=== PATIENT | female | born 1990 | race Caucasian/White ===

== ENCOUNTER 2016-07-14 19:37 | Emergency (ER) | payer BC ==
[~2016-07-14] VITALS: Ht 167.6 cm; Wt 61.4 kg
[~2016-07-14 19:37] MED LIST: AUGMENTIN PO; BACTROBAN2% TP; DOXYCYCLINE 10100 MG PO; LORTAB 5/500 501 TAB PO; MOTRIN 600600 MG/TAB PO; NO HOME MEDICATIONS; NORCO 325 MG-51 TAB PO; PEPCID 20MG TAB20 MG; PRENATAL1 TA2 PO; PRENATAL1 TA7 PO; ZOFRAN 4MG T4 MG/TAB PO
[2016-07-14 19:46] VITALS: BP 113/73; TEMP 98.4
[2016-07-14] MEDS ORDERED: AMOXICILLIN 50500 MG PO (20:47)
[2016-07-14 20:56] VITALS: PULSE 87
== END 2016-07-14 20:56 | disposition home or self-care (01) ==
LOC: COL.ER 19:37
DX: J02.9 Acute pharyngitis, unspecified (principal); F17.210 Nicotine dependence, cigarettes, uncomplicated

== ENCOUNTER 2017-03-25 00:59 | Inpatient (IN) | payer OTHER ==
[~2017-03-25] VITALS: Ht 170.2 cm; Wt 79.5 kg
[2017-03-25] VITALS (31 sets, daily range): BP systolic 99–140; BP diastolic 54–82; PULSE 61–98; TEMP 97.7–98.1
[~2017-03-25 00:59] MED LIST changes: +AMOXICILLIN 50500 MG PO
[2017-03-25 03:42] LABS: BASO % 0.3 % (0.0-2.0); EOS # 0.1 (0.0-0.7); EOS % 1.2 % (0-4.0); GRAN # 6.6 (1.4-6.5); GRAN % 63.2 % (42.2-75.2); HEMATOCRIT 32.8 % (37.0-47.0); HEMOGLOBIN 10.8 g/dl (12.5-16.0); LYMPH % 28.9 % (20.0-51.0); MEAN CELL VOLUME 83 fl (80.0-100.0); MEAN CORPUSCULAR HEMOGLOBIN 27 pg (27.0-31.0); MEAN CORPUSCULAR HGB CONC 33 g/dl (33.0-37.0); MEAN PLATELET VOLUME 11.6 fl (7.4-10.4); MONO # 0.6 (0.1-0.6); MONO % 6.1 % (1.7-9.3); PLATELET COUNT 283 K/mm3 (130-400); RED BLOOD COUNT 3.95 M/mm3 (4.10-5.30); WHITE BLOOD COUNT 10.4 K/mm3 (4.8-10.8)
[2017-03-25] MEDS ORDERED: PEPCID 20MG TAB20 MG PO (07:21)
[2017-03-25] MEDS ORDERED: PRENATAL PO (07:22)
[2017-03-26 06:33] LABS: HEMATOCRIT 33.8 % (37.0-47.0); HEMOGLOBIN 10.8 g/dl (12.5-16.0)
[2017-03-26 08:00] VITALS: BP 111/64; PULSE 73; TEMP 98
[2017-03-26] MEDS ORDERED: PERCOCET 325 MG1 TA2 PO (08:32)
[2017-03-26] MEDS ORDERED: IBU600 MG PO (08:32)
== END 2017-03-26 14:45 | disposition home or self-care (01) | DRG 775 ==
LOC: LDRO 00:59 → OB 01:37 → LDR 01:37 → OB 20:07
PROVIDERS: Obstetrics & Gynecology
PROC: 10E0XZZ Delivery of Products of Conception, External Approach (ICD-10-PCS; principal; 2017-03-25)
DX: O48.0 Post-term pregnancy (principal); Z3A.40 40 weeks gestation of pregnancy; Z37.0 Single live birth
CPT/HCPCS: J2405; J2590; J2795; J7120

== ENCOUNTER 2017-12-12 17:05 | Emergency (ER) | payer BC ==
[~2017-12-12] VITALS: Ht 170.2 cm; Wt 61.4 kg
[~2017-12-12 17:05] MED LIST changes: +IBU600 MG PO; +PEPCID 20MG TAB20 MG PO; +PERCOCET 325 MG1 TA2 PO; +PRENATAL PO
[2017-12-12 17:09] VITALS: BP 123/75; TEMP 98.3
[2017-12-12] MEDS ORDERED: NORCO 325 MG-51 TAB PO (18:18)
[2017-12-12 18:45] VITALS: PULSE 91
== END 2017-12-12 18:45 | disposition home or self-care (01) ==
LOC: COL.ER 17:05
DX: S62.306A Unspecified fracture of fifth metacarpal bone, right hand, initial encounter for closed fracture (principal); F17.210 Nicotine dependence, cigarettes, uncomplicated; W22.8XXA Striking against or struck by other objects, initial encounter; Y92.009 Unspecified place in unspecified non-institutional (private) residence as the place of occurrence of the external cause
CPT/HCPCS: Q4021

== ENCOUNTER 2018-10-14 11:15 | Emergency (ER) | payer BC, MEDICAID ==
[~2018-10-14] VITALS: Ht 170.2 cm; Wt 65.9 kg
[2018-10-14 11:35] VITALS: BP 130/76; TEMP 97.5
[2018-10-14] MEDS ORDERED: TYLENOL 325MG325 MG PO (18:10)
[2018-10-14 18:30] VITALS: PULSE 109
== END 2018-10-14 18:30 | disposition home or self-care (01) ==
LOC: COL.ER 11:15
DX: S92.501A Displaced unspecified fracture of right lesser toe(s), initial encounter for closed fracture (principal); F17.210 Nicotine dependence, cigarettes, uncomplicated; W22.8XXA Striking against or struck by other objects, initial encounter

== ENCOUNTER 2018-12-06 06:00 | Emergency (ER) | payer BC, MEDICAID ==
[~2018-12-06] VITALS: Ht 170.2 cm; Wt 52.3 kg
[~2018-12-06 06:00] MED LIST changes: +TYLENOL 325MG325 MG PO
[2018-12-06 06:09] VITALS: BP 148/110; TEMP 97.7
--- NOTE | 2018-12-06 06:45 | NUR ---
FHR strip obtained per protocol for G5L4 24.2 week gestation. Patient presents to ER after dropping a tv on her right foot. Denies any OB complaints. Reports normal movement, denies ROM, vaginal bleeding or contractions. Continous audible movement noted during monitoring. Encouraged to follow up as scheduled, labor precautions and kick counts reviewed.
[2018-12-06 07:22] VITALS: PULSE 105
== END 2018-12-06 07:22 | disposition home or self-care (01) ==
LOC: COL.ER 06:00
DX: O9A.213 Injury, poisoning and certain other consequences of external causes complicating pregnancy, third trimester (principal); S90.31XA Contusion of right foot, initial encounter; Z3A.30 30 weeks gestation of pregnancy; W20.8XXA Other cause of strike by thrown, projected or falling object, initial encounter; Y92.009 Unspecified place in unspecified non-institutional (private) residence as the place of occurrence of the external cause

== ENCOUNTER 2019-03-20 08:13 | Inpatient (IN) | payer BC, MEDICAID ==
[2019-03-20] VITALS (25 sets, daily range): BP systolic 117–157; BP diastolic 55–100; PULSE 63–107; TEMP 97.3–98.1
[~2019-03-20] VITALS: Ht 167.6 cm; Wt 79.1 kg
[2019-03-20] MEDS ORDERED: PEPCID AC20 MG PO (08:37)
[2019-03-20 08:51] LABS: BASO % 0.2 % (0.0-2.0); EOS # 0.1 (0.0-0.7); GRAN # 9.6 (1.4-6.5); GRAN % 73.6 % (42.2-75.2); HEMOGLOBIN 10.7 g/dl (12.5-16.0); LYMPH # 2.6 (1.2-3.4); LYMPH % 19.9 % (20.0-51.0); MEAN CELL VOLUME 81 fl (80.0-100.0); MEAN CORPUSCULAR HEMOGLOBIN 26 pg (27.0-31.0); MEAN CORPUSCULAR HGB CONC 33 g/dl (33.0-37.0); MEAN PLATELET VOLUME 11.3 fl (7.4-10.4); MONO # 0.6 (0.1-0.6); MONO % 4.8 % (1.7-9.3); PLATELET COUNT 321 K/mm3 (130-400); RED BLOOD COUNT 4.06 M/mm3 (4.10-5.30); REDCELL DISTRIBUTION WIDTH-CV 13.4 % (11.5-14.5)
[2019-03-20 08:56] LABS: HEMATOCRIT 32.9 % (37.0-47.0)
--- NOTE | 2019-03-20 10:20 | NUR ---
0820 - Pt presents to unit with sister, states she is having contractions, and is visibly uncomfortable. Pt states contractions started around 0500, denies bleeding, leaking of fluid, and reports normal movement. Pt changed into gown, EFM placed, vitals taken, oriented to room and plan of care. SVE by Miles Salvador RN is . Dr. Price notified. IV started with LR infusing, consents signed. Warm blankets proivded, pt in right lateral position. Pt requests epidural, Gilbert Maradiaga, [employer] PERSON notified.
[2019-03-20 10:58] LABS: TRICYCLIC ANTIDEPRESS URINE NEGATIVE
--- NOTE | 2019-03-20 13:50 | NUR ---
1219 - Pt reporting increased pressure, SVE AL/+1. Dr. Price on unit and notified. Anguiano removed, pericare provided. 1229 - Pt reports intense back pain. Repositioned into knee/chest position, then left lateral to promote comfort. T Ashwini notified, see anesthesia record. 1236 - Pt reports urge to push. SVE complete and +2. Dr. Price called to bedside. Nursery RN to bedside. Pt prepped for impending delivery. 1240 - Pt begins involuntarily pushing. 1241 - of viable female infant attended by Dr. Price. to mother's abdomen, care of to Stuart Man RN. Apgars 8/9/9. 1246 - Spontaneous delivery of placenta. Pitocin bolus started at 333ml/hr per protocol. Fundus firm at umbilicus. Vaginal bleeding WNL at this time. Perineum intact. Pt updated on plan of care and safety.
[2019-03-21 00:07] VITALS: BP 137/83; PULSE 94; TEMP 97.9
[2019-03-21 03:00] VITALS: BP 124/70; PULSE 87; TEMP 98
[2019-03-21 09:00] VITALS: BP 131/78; PULSE 100; TEMP 98.3
--- NOTE | 2019-03-21 09:45 | NUR ---
regulatory services consultant to room see patient.
--- NOTE | 2019-03-21 10:34 | NUR ---
Social Work Consult recieved: Substance in Mom and Baby. MILO consulted with Dr. Maxwell about mom and baby. indicate concerns of safety for baby going home with mom. Lab reports show positive screen for methamphetamines, amphetamines, THC-Cannabis. Baby shows same titration. MILO met with nurse about patient. Patient is reported to be sleepy and not very interactive due to her drowsiness. went in room and informed patient about positive tox on baby. Report given that the father of the baby Henrry Vaughan found out about the mothers tox screen prior to of baby and was upset. The father is reported to have removed his wedding ring and leave the facility. Report was given that the father wants to be involved and wants the baby but does not want to be around the patient due to substance use. Father is reported to have made the comment that he does not want to go through this again. Father of the baby is not currently present. SW met with patient in the room. Patient reports that her pcp is Dr. Michel and Dr. Dubon is the following PA. Patient reports that she is to Henrry Vaughan or . Patient reports that she does not have a physical address. Patient reports that she and her and children live in a camper that sleeps 10 at [facility]. Patient reports that she has 5 other children ages 13 Raceless Clement, 11 Bryce Suárez, 5 Scot Hennessy, 4 Cass Clement, 2 Jhatt Clement, and one day Baby Clement (no name yet.) Patient reports that her has two of the children with him and the others are with her sister Ronda Verdugo, Patient reports emergency contacts or family involvement as the following: Mother- Lois Floyd Sister Ronda Verdugo Sister Minoo Suárez 2008 [facility] [address] [facility] [phone] No address given and Britt Clement who is the husbands mother. Patient denies that she has done any drugs other than cannabis 3 weeks ago. Patient reports that she started care at 3-4 weeks but was not drug screened during the course of her visits. Patient reports that this is a shock to her and her spouse. 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 Patient reports that she has supplies for baby and believes that she could care for baby at home. Patient has held baby and acts affectionate towards child. Patient details concerns about baby being taken into custody. placed CPS report #[id number], made contact with [facility] Officer Migue Carbajal responded to the call and notified his supervisor frame sample and pattern and Denice Locke. Awaiting intake for processing and mother to be released from hospital.
--- NOTE | 2019-03-21 14:48 | NUR ---
SEE MOM NOTES NEFTALI HUANG FOR REPORT and INTAKE NUMBER. Denice Intake come out to talk with mom about next steps. They reported that they have a placement setup for baby upon DC if, court is not set prior to DC. Intake reports that the mom stated that no one was taking her baby and she would not leave without her child. SW educated intake on safety protocol.
[2019-03-21 15:30] VITALS: BP 132/75; PULSE 80; TEMP 98.2
--- NOTE | 2019-03-21 17:30 | NUR ---
Patient has taken frequent "walks outside" throughout the afternoon. Patient is at the nurses station at this time and is requesting to be discharged to boarder status. Patient's and sister come to the desk and ask if "she (the patient) is allowed to leave". Boarder status explained to everyone. Patient and at the nurse's station arguing, patient's is upset about the positive UDS and is threatening to call the police. Patient and walk off of the unit together. Security called and updated on situation. Dr. Yousif called and updated, orders for boarder status received.
--- NOTE | 2019-03-21 18:40 | NUR ---
Discharge instructions reviewed with patient. Patient and both in room with baby.
== END 2019-03-21 18:45 | disposition home or self-care (01) | DRG 807 ==
LOC: LDRO 08:13 → LDR 08:15 → LDRO 08:15 → LDR 08:15 → EDSTATUS 09:56 → OB 16:26
PROVIDERS: Student in an Organized Health Care Education/Training Program; ADMIT Obstetrics & Gynecology
PROC: 10E0XZZ Delivery of Products of Conception, External Approach (ICD-10-PCS; principal; 2019-03-20)
PROC: 10907ZC Drainage of Amniotic Fluid, Therapeutic from Products of Conception, Via Natural or Artificial Opening (ICD-10-PCS; 2019-03-20)
DX: O99.324 Drug use complicating childbirth (principal); Z37.0 Single live birth; O77.0 Labor and delivery complicated by meconium in amniotic fluid; F15.90 Other stimulant use, unspecified, uncomplicated; Z3A.39 39 weeks gestation of pregnancy
CPT/HCPCS: J2400; J2590; J7120

== ENCOUNTER 2020-12-04 01:42 | Emergency (ER) | payer BC, MEDICAID ==
[~2020-12-04] VITALS: Ht 167.6 cm; Wt 68.2 kg
[~2020-12-04 01:42] MED LIST changes: +PEPCID AC20 MG PO
[2020-12-04 02:05] VITALS: TEMP 97.9
[2020-12-04 02:57] LABS: BASO # 0.1 (0.0-0.2); BASO % 0.5 % (0.0-2.0); EOS # 0.2 (0.0-0.7); EOS % 2.4 % (0-4.0); GRAN # 5.2 (1.4-6.5); GRAN % 56.9 % (42.2-75.2); HEMATOCRIT 39.6 % (37.0-47.0); HEMOGLOBIN 12.3 g/dl (12.5-16.0); LYMPH # 3.1 (1.2-3.4); MEAN CELL VOLUME 86 fl (80.0-100.0); MEAN CORPUSCULAR HEMOGLOBIN 27 pg (27.0-31.0); MEAN CORPUSCULAR HGB CONC 31 g/dl (33.0-37.0); MONO # 0.6 (0.1-0.6); PLATELET COUNT 297 K/mm3 (130-400); RED BLOOD COUNT 4.63 M/mm3 (4.10-5.30); REDCELL DISTRIBUTION WIDTH-CV 13.6 % (11.5-14.5)
[2020-12-04 03:08] LABS: ALANINE AMINOTRANSFERASE 25 U/L (4-34); ALKALINE PHOSPHATASE 78 U/L (50-136); ANION GAP 7 mmol/L (7-16); AST,SGOT 29 U/L (15-37); BILIRUBIN,TOTAL < 0.1 mg/dL (0.0-1.0); BLOOD UREA NITROGEN 15 mg/dL (7-17); CALCIUM 8.7 mg/dL (8.4-10.2); CARBON DIOXIDE 27 mmol/L (22-30); CHLORIDE 104 mmol/L (98-107); GLUCOSE 87 mg/dL (74-106); POTASSIUM 3.9 mmol/L (3.4-5.0); SODIUM 137 mmol/L (137-145); TOTAL PROTEIN 7.2 gm/dL (6.4-8.2)
[2020-12-04 03:40] LABS: HCG,QUANTITATIVE < 2 mIU/mL (0-5)
[2020-12-04] MEDS ORDERED: NECON 0.5/35 351 TAB PO (04:16)
[2020-12-04 04:20] VITALS: BP 145/87; PULSE 79
== END 2020-12-04 04:20 | disposition home or self-care (01) ==
LOC: COL.ER 01:42
PROVIDERS: Personal Emergency Response Attendant
DX: N93.9 Abnormal uterine and vaginal bleeding, unspecified (principal)

== ENCOUNTER 2021-08-08 12:11 | Emergency (ER) | payer MEDICAID ==
[~2021-08-08] VITALS: Ht 167.6 cm; Wt 68.2 kg
[~2021-08-08 12:11] MED LIST changes: +NECON 0.5/35 351 TAB PO
[2021-08-08 12:29] VITALS: TEMP 98.1
[2021-08-08 12:59] LABS: COLLECTION METHOD CLEAN CATCH
[2021-08-08 13:12] LABS: MUCOUS Present (NOT PRESENT); PH 6 (5-8); SQUAMOUS EPITHELIAL 20-50 /hpf (0-10); URINE APPEARANCE Cloudy (CLEAR/HAZY); URINE BACTERIA None Seen /hpf (NONE SEEN); URINE BILIRUBIN Negative (NEGATIVE); URINE BLOOD 1+ (NEGATIVE); URINE COLOR Yellow (YELLOW); URINE GLUCOSE Negative (NEGATIVE); URINE KETONE Negative (NEGATIVE); URINE LEUKOCYTE ESTERASE Trace (NEGATIVE); URINE NITRATE Negative (NEGATIVE); URINE PROTEIN(semi-quant) 1+ (NEGATIVE); URINE RBC 20-50 /hpf (0-2); URINE UROBILINOGEN >=4.0 (NEGATIVE)
[2021-08-08 13:23] LABS: BASO % 0.2 % (0.0-2.0); EOS # 0.1 K/mm3 (0.0-0.7); EOS % 0.6 % (0.0-4.0); GRAN # 6.7 K/mm3 (1.4-6.5); HEMATOCRIT 43.5 % (37.0-47.0); LYMPH # 1.3 K/mm3 (1.2-3.4); LYMPH % 15.3 % (20.0-51.0); MEAN CELL VOLUME 83 fl (80.0-100.0); MEAN CORPUSCULAR HEMOGLOBIN 27 pg (27-31); MEAN CORPUSCULAR HGB CONC 32 g/dl (33.0-37.0); MONO # 0.5 K/mm3 (0.1-0.6); MONO % 5.7 % (1.7-9.3); PLATELET COUNT 315 K/mm3 (130-400); RED BLOOD COUNT 5.25 M/mm3 (4.10-5.30); REDCELL DISTRIBUTION WIDTH-CV 13.3 % (11.5-14.5)
[2021-08-08 13:44] LABS: ALBUMIN 3.9 gm/dL (3.5-5.0); BILIRUBIN,TOTAL 0.2 mg/dL (0.2-1.2); CALCIUM 8.4 mg/dL (8.4-10.2); CREATININE, serum 0.75 mg/dL (0.57-1.11); POTASSIUM 3.9 mmol/L (3.5-4.5); TOTAL PROTEIN 7.1 gm/dL (6.2-8.1)
[2021-08-08] MEDS ORDERED: REGLAN 10MG10 MG/TAB PO (15:23)
[2021-08-08 15:35] VITALS: BP 107/80; PULSE 89
== END 2021-08-08 15:35 | disposition home or self-care (01) ==
LOC: COL.ER 12:11
PROVIDERS: Emergency Medicine
DX: R10.84 Generalized abdominal pain (principal); R11.2 Nausea with vomiting, unspecified; F17.200 Nicotine dependence, unspecified, uncomplicated; Z32.02 Encounter for pregnancy test, result negative
CPT/HCPCS: J2270; J2765; J7120; Q9967

== ENCOUNTER 2022-05-21 04:00 | Emergency (ER) | payer SELFPAY ==
[~2022-05-21] VITALS: Ht 170.2 cm; Wt 72.7 kg
[~2022-05-21 04:00] MED LIST changes: +REGLAN 10MG10 MG/TAB PO
[2022-05-21 04:04] VITALS: TEMP 98
[2022-05-21] MEDS ORDERED: ATARAX50 MG PO (04:50)
[2022-05-21] MEDS ORDERED: ZOFRAN ODT4 MG PO (04:50)
[2022-05-21] MEDS ORDERED: NAPROSYN500 MG PO (04:50)
[2022-05-21 05:05] VITALS: BP 158/80; PULSE 78
== END 2022-05-21 05:06 | disposition home or self-care (01) ==
LOC: COL.ER 04:00
DX: F15.23 Other stimulant dependence with withdrawal (principal); F17.210 Nicotine dependence, cigarettes, uncomplicated; Z28.310 Unvaccinated for COVID-19